=== PATIENT | female | born 1965 | race African-American/Black ===

== ENCOUNTER → 2018-01-25 | Outpatient (CLI) | payer MEDICARE | END | disposition home or self-care (01) | LOC: MAMMO 14:06 | DX: Z12.31 Encounter for screening mammogram for malignant neoplasm of breast (principal) | CPT/HCPCS: 77067 ==

== ENCOUNTER 2018-02-07 13:42 | Emergency (ER) | payer MEDICARE ==
[2018-02-07] MEDS: KETOROLAC 60 MG/2 ML INJ. IM (14:18)
== END 2018-02-07 14:40 | disposition home or self-care (01) ==
LOC: ER 13:42
DX: G89.4 Chronic pain syndrome (principal); M25.561 Pain in right knee; M25.552 Pain in left hip; I10 Essential (primary) hypertension
CPT/HCPCS: 96372; 99283-25; J1885

== ENCOUNTER → 2018-02-07 | Outpatient (CLI) | payer MEDICARE | END | disposition home or self-care (01) | LOC: MAMMO 12:45 | DX: R92.8 Other abnormal and inconclusive findings on diagnostic imaging of breast (principal) | CPT/HCPCS: 77065 ==

== ENCOUNTER → 2020-05-08 | Outpatient (CLI) | payer MEDICARE ==
[2018-02-07 13:46] VITALS: BP 147/74
[~2020-05-08] MED LIST: METH4TAB2 PO
--- NOTE | 2020-05-09 17:20 | RAD ---
DATE: 05/08/2020 2:11 PM EXAM: DIGITAL SCREEN BILAT W/CAD HISTORY: Screening COMPARISON: 01/25/2018 Bilateral full field craniocaudal and mediolateral oblique images were obtained using digital technique. This study was interpreted with the benefit of Computerized Aided Detection (CAD). FINDINGS: Breast Density: FATTY The Breast Parenchyma is primarily fatty replaced. Breast parenchyma level density A. No suspicious masses, microcalcifications or architectural distortion is present to suggest malignancy in either breast. The visualized axillae are unremarkable. IMPRESSION: No mammographic evidence of malignancy. BI-RADS CATEGORY: 1 NEGATIVE RECOMMENDED FOLLOW-UP: 12M 12 MONTH FOLLOW-UP Annual screening mammography is recommended, unless clinically indicated sooner based on symptoms or change in physical exam. PQRS compliance statement: Patient information was entered into a reminder system with a target due date 05/09/2021 for the next mammogram. Mammography is a sensitive method for finding small breast cancers, but it does not detect them all and is not a substitute for careful clinical examination. A negative mammogram does not negate a clinically suspicious finding and should not result in delay in biopsying a clinically suspicious abnormality. "Our facility is accredited by the [employer] Mammography Program."
== END | disposition home or self-care (01) ==
LOC: MAMMO 13:55
PROVIDERS: ATTEND Internal Medicine
DX: Z12.31 Encounter for screening mammogram for malignant neoplasm of breast (principal)
CPT/HCPCS: 77067

== ENCOUNTER → 2021-05-13 | Outpatient (CLI) | payer MEDICARE ==
[2018-02-07 13:46] VITALS: BP 147/74
--- NOTE | 2021-05-13 15:36 | RAD ---
PROCEDURE: MG 2D BILAT SCREENING HISTORY: The patient is 55 years old and is seen for Reason: SCREENING MAMMOGRAM / Spl. Instructions: / History: . COMPARISON: May 08, 2020 and January 25, 2018. TECHNIQUE: CC and MLO views of both breasts were obtained. Images were processed by the [employer] computer-aided detection system. DENSITY: The breast tissue is predominantly fatty. FINDINGS: Right breast: Biopsy marker within the medial right breast. Benign-appearing calcifications, unchange d. No new suspicious microcalcification, mass or architectural distortion. Left breast: Posterior microcatheter ossifications within the left medial upper breast, unchanged com pared to 2018. Additional benign-appearing calcifications. No new suspicious microcalcifications, mas s or architectural distortion. IMPRESSION: Stable bilateral mammograms. Recommend annual screening mammograms per [employer] guidelines. BI-RADS category 2 Benign Patient entered into a reminder system for annual screening mammogram. Electronically signed by: Marshal Macedo DO (05/13/2021 3:33 PM) [id number]
== END ==
LOC: MAMMO 14:12
PROVIDERS: ATTEND Internal Medicine
DX: Z12.31 Encounter for screening mammogram for malignant neoplasm of breast (principal)
CPT/HCPCS: 77067